=== PATIENT | male | born 1965 | race Two or more races ===

== ENCOUNTER 2025-03-20 14:21 | Day surgery (SDC) | payer BC, SELFPAY ==
--- NOTE | 2025-03-19 06:00 | EKG_ITS ---
[facility] Test Date: 2025-03-19 Pat Name: CHELO THRASHER Department: Room: - Gender: Male Car Carder: NAVI : 1965 Requested By: Marcos Costello Order Number: [id number] Reading MD: Marcos Costello Measurements Intervals [place] Rate: 93 P: 57 MI: 154 QRS: 47 QRSD: 93 T: 37 QT: 358 QTc: 446 Interpretive Statements SINUS RHYTHM No previous ECG available for comparison /store/S0/[id number].pdf
[2025-03-19 15:02] VITALS: BMI 27.3
[2025-03-19 15:56] LABS: Alanine Aminotransferase 27 U/L (10-49); Albumin, Serum 4.8 gm/dL (3.5-5.0); Albumin/Globulin Ratio 1.5 (1.2-2.2); Alkaline Phosphatase 82 U/L (46-116); Anion Gap 8 (7-16); Aspartate Amino Transferase 35 U/L (0-34); BUN/Creatinine Ratio 15 Ratio (12-20); Bilirubin,Total 0.9 mg/dL (0.3-1.2); Blood Urea Nitrogen 19 mg/dL (9-23); Calcium 9.9 mg/dL (8.3-10.6); Calcium (Corrected) 9.9 mg/dL (8.5-10.1); Carbon Dioxide 26.9 mMol/L (20.0-31.0); Chloride 101 mMol/L (98-107); Creatinine (Component) 1.3 mg/dL (0.6-1.3); Estimated Creatinine Clearance 63.3 mL/min (>60); Globulin 3.3 gm/dL (2.3-3.5); Glucose 108 mg/dL (74-106); Osmolality,Calculated 275 (275-295); Potassium 3.9 mMol/L (3.4-5.1); Sodium 136 mMol/L (136-145); Total Protein 8.1 gm/dL (5.7-8.2); eGFR > 60 See Note
[2025-03-20] VITALS (7 sets, daily range): BP systolic 86–128; BP diastolic 52–91; PULSE 76–788; RESP 11–22; TEMP 36.2–37.2; O2SAT 94–100; BMI 25.1
[2025-03-20] MEDS: RINGERS LACTATED 500 ML 500 ML 20 ML IV (14:18)
--- NOTE | 2025-03-20 17:42 | SUR.PHASEII ---
pt received to [facility]. report received from dr alcantara and nurse darling. vss. breathing even and unlabored. vss
--- NOTE | 2025-03-20 18:15 | SUR.PHASEII ---
pt discharged with all belongings. vss. and pt both verbalize discharge instructions.
== END 2025-03-20 18:15 | disposition home or self-care (01) ==
PROVIDERS: Anesthesiology; PCP Family Medicine; Referring Provider Internal Medicine Gastroenterology; Visit Provider Internal Medicine Gastroenterology
PROC: (CPT 43239; principal; 2025-03-20 13:00)
PROC: 0DJD8ZZ Inspection of Lower Intestinal Tract, Via Natural or Artificial Opening Endoscopic (ICD-10-PCS; CPT 45378; 2025-03-20 13:00)
DX: D12.0 Benign neoplasm of cecum (principal); D50.0 Iron deficiency anemia secondary to blood loss (chronic); D12.3 Benign neoplasm of transverse colon; D12.8 Benign neoplasm of rectum; K64.9 Unspecified hemorrhoids; Z01.810 Encounter for preprocedural cardiovascular examination; K31.7 Polyp of stomach and duodenum; K20.80 Other esophagitis without bleeding; K44.9 Diaphragmatic hernia without obstruction or gangrene; K31.89 Other diseases of stomach and duodenum
CPT/HCPCS: 45385; 45380; 36415; 80053; 93005; J7120